=== PATIENT | male | born 1950 | race Caucasian/White ===

== ENCOUNTER 2023-02-08 16:07 | Emergency (ER) | payer MEDICARE, BC ==
[~2023-02-08] VITALS: Ht 175.3 cm; Wt 98.7 kg
[2023-02-08 19:32] VITALS: BP 120/70; TEMP 98.1; O2SAT 98
[2023-02-08 19:43] LABS: BASO % 0.2 % (0.0-1.0); EOS % 0.2 % (0.0-3.0); HEMATOCRIT 39.6 % (42.0-52.0); HEMOGLOBIN 14.2 g/dl (13.5-17.5); LYMPH # 1.3 10^3/uL (1.5-5.0); LYMPH % 10.6 % (24.0-44.0); MEAN CORPUSCULAR HEMOGLOBIN 32.9 pg (27.0-33.0); MEAN CORPUSCULAR HGB CONC 35.9 g/dl (32.0-36.5); MEAN CORPUSCULAR VOLUME 91.7 fl (80.0-96.0); MONO # 1.2 10^3/uL (0.0-0.8); MONO % 9.3 % (2.0-8.0); NEUTROPHILS # 9.8 10^3/uL (1.5-8.5); NEUTROPHILS % 79.1 % (36.0-66.0); PLATELET COUNT, AUTOMATED 223 10^3/uL (150-450); RED BLOOD COUNT 4.32 10^6/uL (4.30-6.10); WHITE BLOOD COUNT 12.4 10^3/uL (4.0-10.0)
[2023-02-08] MEDS ORDERED: CIPROFLOXACIN 500MG TABLET PO ONE (20:00)
[2023-02-08] MEDS ORDERED: CIPR-249 PO (20:00)
== END 2023-02-08 20:23 | disposition home or self-care (01) ==
LOC: M ED 16:07
DX: R33.9 Retention of urine, unspecified (principal); I11.9 Hypertensive heart disease without heart failure; I25.10 Atherosclerotic heart disease of native coronary artery without angina pectoris; I25.2 Old myocardial infarction; E11.9 Type 2 diabetes mellitus without complications; N40.1 Benign prostatic hyperplasia with lower urinary tract symptoms; G60.9 Hereditary and idiopathic neuropathy, unspecified; M54.30 Sciatica, unspecified side; Z88.8 Allergy status to other drugs, medicaments and biological substances; Z79.899 Other long term (current) drug therapy